=== PATIENT | male | born 1950 | race American Indian/Alaskan Native ===

== ENCOUNTER 2018-04-23 03:16 | Emergency (ER) | payer MEDICARE, MEDICAID ==
[2018-04-23 03:22] VITALS: BP 153/82
[2018-04-23] MEDS ORDERED: LIDOCAINE VISCOUS 2% ONE (03:28)
[2018-04-23] MEDS ORDERED: LIDOCAINE VISCOUS 2% PO ONE (03:28)
--- NOTE | 2018-04-23 05:51 | Emergency Department Report ---
ED ENT HPI - General Chief complaint: Earache Stated complaint: INSECT RIGHT EAR Time Seen by Provider: 04/23/18 03:56 Source: patient Mode of arrival: Ambulatory Limitations: No Limitations - History of Present Illness Initial comments: 67 0 -[place] male presents to the emergency room complaining of a insect in the right ear times today. Patient reports the pain as a 10 out of 10 and feels that the insect is moving. Patient has a past medical history of a CVA and GA 2, stents 8. Right hip replacement. MD complaint: ear pain -: During the night Location: R ear Severity: severe Severity scale (0 -10): 10 Quality: sharp Consistency: constant Improves with: none Worsens with: none - Related Data Previous Rx's Medication Instructions Recorded Last Taken Type Amoxicillin [Amoxicillin TAB] 875 mg PO BID #20 tablet 04/23/18 Unknown Rx traMADol [Ultram 50 MG tab] 50 mg PO Q6HR PRN #20 tablet 04/23/18 Unknown Rx Allergies Allergy/AdvReac Type Severity Reaction Status Date / Time No Known Allergies Allergy Verified 04/23/18 03:41 ED Dental HPI - General Chief complaint: Earache Stated complaint: INSECT RIGHT EAR Time Seen by Provider: 04/23/18 03:56 Source: patient Mode of arrival: Ambulatory Limitations: No Limitations - Related Data Previous Rx's Medication Instructions Recorded Last Taken Type Amoxicillin [Amoxicillin TAB] 875 mg PO BID #20 tablet 04/23/18 Unknown Rx traMADol [Ultram 50 MG tab] 50 mg PO Q6HR PRN #20 tablet 04/23/18 Unknown Rx Allergies Allergy/AdvReac Type Severity Reaction Status Date / Time No Known Allergies Allergy Verified 04/23/18 03:41 ED Review of Systems ROS: Stated complaint: INSECT RIGHT EAR Other details as noted in HPI ENT: ear pain ED Past Medical Hx - Past Medical History Previous Medical History?: Yes Hx CVA: Yes Hx Heart Attack/AMI: Yes (GA x2, stents x8) - Surgical History Additional Surgical History: right hip replacement - Social History Smoking Status: Current Every Day Smoker - Medications Home Medications: Home Medications Medication Instructions Recorded Confirmed Last Taken Type Amoxicillin [Amoxicillin TAB] 875 mg PO BID #20 tablet 04/23/18 Unknown Rx traMADol [Ultram 50 MG tab] 50 mg PO Q6HR PRN #20 tablet 07/09/18 Unknown Rx ED Physical Exam - General Limitations: No Limitations - Expanded ENT Exam Expanded TM/Canal exam: Foreign Body: Right TM (insect), Canal Tenderness: Right TM - Extremities Exam Extremities exam: Present: full ROM - Back Exam Back exam: Present: full ROM - Neurological Exam Neurological exam: Present: alert, oriented X3 - Psychiatric Psychiatric exam: Present: normal affect, normal mood - Skin Skin exam: Present: warm, dry, intact, normal color. Absent: rash ED Course Vital Signs 04/23/18 04/23/18 03:15 03:20 Temperature 98.4 F 98.4 F Pulse Rate 78 73 Respiratory 18 18 Rate Blood Pressure 153/82 153/82 O2 Sat by Pulse 97 97 Oximetry - Foreign Body Removal Ear Location: ear canal (R) Foreign Body Suspected: insect If Insect Suspected: ear canal instilled with Foreign Body Removed: partial removal Foreign Body Removal Technique: irrigation (in curet) Tympanic Membrane Intact: No (perforated) Patient Tolerated Procedure: well Complications: TM perforation ED Medical Decision Making - Medical Decision Making Patient has been evaluated by this provider fashion. Attempt to remove insect from right ear with a partial removal. Perforation of the tympanic membrane. Patient was given pain medication lidocaine to kill the insect. Will refer to ear nose and throat provider. Will place patient on pain medication and oral antibiotics. Critical care attestation.: If time is entered above; I have spent that time in minutes in the direct care of this critically ill patient, excluding procedure time. ED Disposition Clinical Impression: Foreign body of ear, right Qualifiers: Encounter type: initial encounter Qualified Code(s): T16.1XXA - Foreign body in right ear, initial encounter Disposition: TO HOME OR SELFCARE Is pt being admited?: No Does the pt Need Aspirin: No Condition: Stable Instructions: Earache (ED), Ear Foreign Body (ED) Additional Instructions: Complete antibiotics as prescribed. Pain medication as needed. Please follow up with ear nose and throat I have listed several below 2 help with ear treatment of removing the foreign body from the right ear. Prescriptions: Amoxicillin [Amoxicillin TAB] 875 mg PO BID #20 tablet traMADol [Ultram 50 MG tab] 50 mg PO Q6HR PRN #20 tablet PRN Reason: Pain Referrals: DEMETRI SON MD [Primary Care Provider] - 3-5 Days MOMO LANG MD [Staff Physician] - 3-5 Days MARTIN CALVIN MD [Staff Physician] - 3-5 Days NAZARIO HENDRIX MD [Staff Physician] - 3-5 Days SUSANA WILLIS MD [Staff Physician] - 3-5 Days Forms: Work/School Release Form(ED)
== END 2018-04-23 05:55 | disposition home or self-care (01) ==
LOC: ED 03:16 → EDBD 03:16 → ED 05:55
DX: T16.1XXA Foreign body in right ear, initial encounter (principal); I25.2 Old myocardial infarction; F17.200 Nicotine dependence, unspecified, uncomplicated; Z86.73 Personal history of transient ischemic attack (TIA), and cerebral infarction without residual deficits; X58.XXXA Exposure to other specified factors, initial encounter; Y93.89 Activity, other specified; Y92.89 Other specified places as the place of occurrence of the external cause; Y99.8 Other external cause status
CPT/HCPCS: 99283